=== PATIENT | female | born 1965 | race Caucasian/White ===

== ENCOUNTER 2018-05-08 20:19 | Inpatient (IN) ==
[2018-05-08] MEDS ORDERED: Sod Chloride 0.9% Inj 1,000 ML IV.SIG ONE (22:05)
--- NOTE | 2018-05-08 22:11 | ED ---
HPI General Chief complaint: Fall Stated complaint: Left Hip Pain Time Seen by Provider: 05/08/18 21:55 History of Present Illness HPI narrative: 53-year-old female presents via EMS for evaluation. The patient reports that this morning she Was walking in her home when she became lightheaded and fell to the ground, landing on her left hip. She is complaining of left hip pain which is constant, aching, aggravated by movement. She reports that she has not been able to ambulate on her left hip since the fall. She takes morphine and Percocet for chronic pain. She reports that she has had similar lightheaded episodes several times in the past and has been seen at different hospitals for evaluation of that issue and told that everything was "normal" and she believes that it is secondary to her medications. She takes aspirin, atorvastatin, morphine, Percocet, unknown blood pressure medications. She does report a generalized headache as well as her left hip pain. She denies chest pain, shortness of breath, palpitations, blurred vision, nausea, vomiting, abdominal pain, flank pain. No other complaints. Related Data Home Medications Medication Instructions Recorded Confirmed aspirin 325 mg PO DAILY 05/08/18 05/08/18 atorvastatin 80 mg PO DAILY 05/08/18 05/08/18 morphine mg PO BID 05/08/18 oxycodone-acetaminophen [Percocet] 1 tab PO Q4-6H PRN 05/08/18 05/08/18 Allergies Allergy/AdvReac Type Severity Reaction Status Date / Time No Known Allergies Allergy Unverified 05/08/18 21:41 Review of Systems ROS: all other systems reviewed are negative [facility] Medical History Medical History HTN (hypertension) (Acute) High cholesterol (Acute) Surgical History Surgical History Hx of CABG (Acute) Social History Social History Substance History: Active Abuse Second Hand Smoke Exposure: No Smoking Status: Former smoker How Often Do You Have a Drink Containing Alcohol: Never Recent Travel in [place] within the Last 8 Weeks: No Recent Out of Country Travel within the Last 8 Weeks: No Substance Abuse Detail Marijuana: Substance Use Status: Active Route Used Substance Abuse: By Mouth and Inhalation Substance Frequency: DAILY Reason for Use: Calm Down and Feels Good Immunization History Tetanus Immunization: >5 Years Hx Influenza Vaccine This Season: No Exam Narrative Exam Narrative: GENERAL: This is a well-developed well-nourished female no acute distress SKIN: Warm and dry. Surgical scars noted on the abdomen and legs. HEAD: Atraumatic. Normocephalic. EYES: Pupils equal and round. No scleral icterus. No injection or drainage. ENT: No nasal bleeding or discharge. Mucous membranes pink and moist. NECK: Trachea midline. No JVD. CARDIOVASCULAR: Regular rate and rhythm. No murmur appreciated. RESPIRATORY: No accessory muscle use. Clear to auscultation. Breath sounds equal bilaterally. GASTROINTESTINAL: Abdomen soft, non-tender, nondistended. Hepatic and splenic margins not palpable. MUSCULOSKELETAL: No obvious deformities. There is no shortening or rotation of the hips. There is pain with passive range of motion activities of the left hip as well as tenderness to palpation of the left hip. NEUROLOGICAL: Awake and alert. No obvious cranial nerve deficits. Motor grossly within normal limits. Normal speech. Course Initial Documented Vital Signs Temperature 98.4 F 05/08/18 21:42 Pulse Rate 114 H 05/08/18 21:42 Respiratory Rate 20 05/08/18 21:42 Blood Pressure 155/81 H 05/08/18 21:42 Pulse Oximetry 100 05/08/18 21:42 Last Documented Vital Signs Temperature 98.4 F 05/08/18 21:42 Pulse Rate 116 H 05/08/18 22:20 Respiratory Rate 20 05/08/18 21:49 Blood Pressure 155/81 H 05/08/18 21:42 Pulse Oximetry 100 05/08/18 21:42 Medical Decision Making [facility] Narrative Medical decision making narrative: The patient was placed on ECG monitoring pulse oximetry. 12 lead EKG ordered. Lab work, hip/pelvis x-ray, CT brain ordered. The patient will be given IV fluids. The patient's lab work and imaging studies have been reviewed. The x-ray of the hip was negative. She seems to have severe pain in her left hip and has been unable to handle it all day. Therefore CT of the left hip was obtained and it does reveal an acute nondisplaced femoral neck fracture. CT the brain reveals no acute abnormalities. The patient began acting bizarre approximately 1-2 hours after she arrived. She reports that she last took her pain medication this morning I suspect that she may be having opiate withdrawals. Morphine has been ordered. The patient will be admitted to the medicine team for orthopedic consultation. Medical Screen Exam Complete: Yes Emergency Medical Condition: Yes Differential Diagnosis Differential Diagnosis: intracranial hemorrhage, arrhythmia, electrolyte abnormality, hypoglycemia, anemia, dehydration,Medication side effect, orthostatic hypotension, vertigo, acute coronary syndrome Lab Data Result diagrams: 05/08/18 22:20 05/08/18 22:20 Lab Results 05/08/18 05/08/18 Range/Units 22:20 22:20 WBC 9.9 (4.0-11.0) th/mm3 RBC 5.01 (4.00-5.30) mil/mm3 Hgb 14.8 (11.6-15.3) gm/dL Hct 43.5 (35.0-46.0) % MCV 86.9 (80.0-100.0) fL MCH 29.6 (27.0-34.0) pg MCHC 34.1 (32.0-36.0) % RDW 13.5 (11.6-17.2) % Plt Count 214 (150-450) th/mm3 MPV 7.2 (7.0-11.0) fL Neut % (Auto) 80.5 H (16.0-70.0) % Lymph % (Auto) 13.3 (9.0-44.0) % [place] % (Auto) 5.4 (0.0-8.0) % Eos % (Auto) 0.1 (0.0-4.0) % Baso % (Auto) 0.7 (0.0-2.0) % Neut # (Auto) 8.0 H (1.8-7.7) th/mm3 Lymph # (Auto) 1.3 (1.0-4.8) th/mm3 [place] # (Auto) 0.5 (0.0-0.9) th/mm3 Eos # (Auto) 0.0 (0.0-0.4) th/mm3 Baso # (Auto) 0.1 (0.0-0.2) th/mm3 WBC Differential . Differential Comment Auto diff final Sodium 142 (136-145) meq/L Potassium 4.0 (3.5-5.1) meq/L Chloride 104 (98-107) meq/L Carbon Dioxide 29.7 (21.0-32.0) meq/L Anion Gap 8 (5-15) meq/L BUN 15 (7-18) mg/dL Creatinine 0.79 (0.50-1.00) mg/dL Estimated GFR 76 L (>89) mL/min Random Glucose 112 H (74-106) mg/dL Calcium 9.2 (8.5-10.1) mg/dL Magnesium 2.6 H (1.5-2.5) mg/dL Total Creatine Kinase 313 H (26-192) U/L CK-MB (CK-2) 2.4 (0.5-3.6) ng/mL CK-MB (CK-2) % 0.8 (0.0-4.0) % Troponin I Less than 0.02 L (0.02-0.05) ng/mL Imaging Data Radiologist's impression: Hip X-Ray 05/08/18 22:05 CONCLUSION: No fracture is definitely seen. Head CT 05/09/18 00:00 CONCLUSION: 1. Negative CT Head non contrast. . Hip CT 05/09/18 00:00 CONCLUSION: 1. Acute nondisplaced subcapital femoral neck fracture. Discharge Plan Discharge Disposition Patient Disposition: 30 Still Patient Discharge Condition Condition: Stable Discharge Details Diagnosis: Closed hip fracture, Opiate withdrawal Physicians Team ED Provider: Subhash Beasley ED Midlevel Provider: Jorge Fonseca Primary Care Provider: UNKNOWN, Rxs /Orders / Referrals /Forms Prescriptions: No Action atorvastatin 80 mg Tablet 80 mg PO DAILY RF: 0 aspirin 325 mg Tablet 325 mg PO DAILY RF: 0 oxycodone-acetaminophen [Percocet] 10-325 mg Tablet 1 tab PO Q4-6H PRN (Reason: Pain) RF: 0 morphine 15 mg Tablet PO BID RF: 0 Status ED Status: With Doctor
[2018-05-08 22:27] LABS: Baso # (Auto) 0.1 th/mm3 (0.0-0.2); Baso % (Auto) 0.7 % (0.0-2.0); Eos % (Auto) 0.1 % (0.0-4.0); Hematocrit 43.5 % (35.0-46.0); Hemoglobin 14.8 gm/dL (11.6-15.3); Lymph # (Auto) 1.3 th/mm3 (1.0-4.8); Lymph % (Auto) 13.3 % (9.0-44.0); Mean Corpuscular HGB Conc 34.1 % (32.0-36.0); Mean Corpuscular Hemoglobin 29.6 pg (27.0-34.0); Mean Corpuscular Volume 86.9 fL (80.0-100.0); Mean Platelet Volume 7.2 fL (7.0-11.0); Mono # (Auto) 0.5 th/mm3 (0.0-0.9); Mono % (Auto) 5.4 % (0.0-8.0); Neut % (Auto) 80.5 % (16.0-70.0); Platelet Count 214 th/mm3 (150-450); Red Blood Count 5.01 mil/mm3 (4.00-5.30); Red Cell Distribution Width 13.5 % (11.6-17.2); White Blood Count 9.9 th/mm3 (4.0-11.0)
[2018-05-08 22:49] LABS: Anion Gap 8 meq/L (5-15); Blood Urea Nitrogen 15 mg/dL (7-18); Calcium 9.2 mg/dL (8.5-10.1); Carbon Dioxide 29.7 meq/L (21.0-32.0); Chloride 104 meq/L (98-107); Glomerular Filtration Rate 76 mL/min (>89); Glucose,Random 112 mg/dL (74-106); Magnesium 2.6 mg/dL (1.5-2.5); Sodium 142 meq/L (136-145)
[2018-05-08 22:54] LABS: Creatine Kinase 313 U/L (26-192)
--- NOTE | 2018-05-08 22:55 | XR ---
EXAM DATE: 05/08/2018 10:45 PM EDT AGE/SEX: 53 years / Female INDICATIONS: Left hip pain, fall. CLINICAL DATA: This is the patient's initial encounter. Patient reports that signs and symptoms have been present for 1 day and indicates a pain score of 10/10. MEDICAL/SURGICAL HISTORY: None. None. COMPARISON: No prior exams available for comparison. FINDINGS: A fracture is not seen. Clips are seen at the hip regions bilaterally. There is degenerative change i n the lumbar spine. There is a vascular stent seen in the right common iliac region. CONCLUSION: No fracture is definitely seen. Electronically signed by: Humberto Colmenares MD 05/08/2018 10:54 PM EDT
[2018-05-08 23:19] LABS: CKMB Percent 0.8 % (0.0-4.0); Creatine Kinase MB 2.4 ng/mL (0.5-3.6)
--- NOTE | 2018-05-09 00:57 | CT ---
EXAM DATE: 05/09/2018 12:52 AM EDT AGE/SEX: 53 years / Female INDICATIONS: Trauma; fall. CLINICAL DATA: This is the patient's initial encounter. Patient reports that signs and symptoms have been present for 1 day and indicates a pain score of 5/10. MEDICAL/SURGICAL HISTORY: Cardiovascular disease. Hypertension. CABG. RADIATION DOSE: 52.34 CTDI (mGy) COMPARISON: No prior exams available for comparison. TECHNIQUE: Multiple contiguous axial images were acquired using a multirow detector CT scanner witho ut contrast. Multiplanar reconstruction was performed in the sagittal and coronal planes. Using aut omated exposure control and adjustment of the mA and/or kV according to patient size, radiation dose was kept as low as reasonably achievable to obtain optimal diagnostic quality images. DICOM format i mage data is available electronically for review and comparison. FINDINGS: There is an acute nondisplaced subcapital femoral neck fracture. No angulation or distraction. The fe moral head remains in contact with the acetabulum. There is a bypass graft seen involving the left hemipelvis as well as to femorofemoral bypass grafts. Urinary bladder is well distended. Degenerative changes within the lower lumbar spine. Heavily calci fied plaque involving the visualized inflow vessels. Degenerative changes involving the SI joints. CONCLUSION: 1. Acute nondisplaced subcapital femoral neck fracture. Electronically signed by: Howard Castro MD 05/09/2018 12:56 AM EDT
--- NOTE | 2018-05-09 00:58 | CT ---
EXAM DATE: 05/09/2018 12:46 AM EDT AGE/SEX: 53 years / Female INDICATIONS: Fall altered mental status. CLINICAL DATA: This is the patient's initial encounter. Patient reports that signs and symptoms have been present for 1 day and indicates a pain score of 5/10. MEDICAL/SURGICAL HISTORY: Cardiovascular disease. Hypertension. CABG. RADIATION DOSE: 56.35 CTDI (mGy) COMPARISON: No prior exams available for comparison. TECHNIQUE: CT of the head without contrast. Using automated exposure control and adjustment of the mA and/or kV according to patient size, radiation dose was kept as low as reasonably achievable to ob tain optimal diagnostic quality images. DICOM format image data is available electronically for revi ew and comparison. FINDINGS: Cerebrum: The ventricles are normal for age. No evidence of midline shift, mass lesion, hemorrhage or acute infarction. No extraaxial fluid collections are seen. Posterior Fossa: The cerebellum and brainstem are intact. The 4th ventricle is midline. The cerebe llopontine angle is unremarkable. Extracranial: The visualized portion of the orbits is intact. Skull: The calvaria is intact. No evidence of skull fracture. CONCLUSION: 1. Negative CT Head non contrast. . Electronically signed by: Howard Castro MD 05/09/2018 12:57 AM EDT
[2018-05-09] MEDS ORDERED: Morphine Sulfate Inj 8 MG/ML Vial IV.PUSH ONE (01:04)
[2018-05-09] MEDS ORDERED: Morphine Inj 4 MG/ML Vial IV.PUSH ONE (01:11)
[2018-05-09] MEDS ORDERED: Acetaminophen 325 MG Tablet PO PRN (01:17)
[2018-05-09] MEDS ORDERED: Bisacodyl 10 MG Supp RECTAL PRN (01:17)
--- NOTE | 2018-05-09 02:20 | P.HPIM ---
History of Present Illness Primary Care Physician: UNKNOWN History of Present Illness: This is a 53-year-old female with a PMH of HTN, Chronic Pain and Hyperlipidemia who was brought to the ER by EMS secondary to complaints of left hip pain. States she had sudden episode of dizziness w/ fall while at home earlier this morning, notes she's been unable to ambulate due to pain. Notes pain is constant, severe, 10/10, non-radiating. No other injuries reported. On arrival , BP 155/81, HR 114, O2 sat 100% on RA, Afebrile. CBC unremarkable. Chemistry essentially unremarkable except for GFR 76. CPK 313. Troponin negative. Hip x -ray with no fracture. CT Hip with acute nondisplaced subcapital femoral neck fracture. While in the ER, patient with episode of delirium thought to be related to opiate withdrawal as patient on Morphine and Percocet at home w/ missed doses. CT Head w/ no acute findings. - Diagnosis (1) Fall (2) Hip fracture, left (3) Delirium Inpatient Certification: I certify that the inpatient services were ordered in accordance with Medicare regulations governing the order. This includes certification that hospital inpatient services are reasonable and necessary and in the case of services not specified as inpatient-only under 42 CFR 419.22(n), that they are appropriately provided as inpatient services in accordance to with the 2-midnight benchmark under 43 CFR 412.3(e) Estimated Total Length of Stay (Days): 2 Plans for Post Hospital Care: Not yet determined Review of Systems PAST FAMILY HISTORY: Reviewed. No h/o DM or CAD All other systems reviewed negative except as stated in HPI PMFSH - History History Provided By: Patient - Medical History Medical History: Medical History (Last Updated 05/08/18 @ 21:48 by Theron Ravi) HTN (hypertension) High cholesterol - Surgical History Surgical History: Surgical History (Last Updated 05/08/18 @ 21:48 by Theron Ravi) Hx of CABG - Tobacco History Second Hand Smoke Exposure: No Tobacco Use In Past 30 Days: No Smoking Status: Former smoker - Alcohol History How Often Do You Have a Drink Containing Alcohol: Never - Substance Use History Substance History: Active Abuse - Substance Use Type Marijuana Status: Active Route Used: By Mouth, Inhalation Frequency: DAILY Reason for Use: Calm Down, Feels Good - Travel History Recent Travel in the [place] Within the Last 8 Weeks: No Recent Travel Out of the Country Within the Last 8 Weeks: No - Immunization History Tetanus Immunization: >5 Years Hx Influenza Vaccine This Season: No Medications and Allergies Active Medications: Active Medications Acetaminophen (Tylenol) 650 mg PO Q4H PRN PRN Reason: Temp > 100.4 Al Hydroxide/Mg Hydroxide (Milk Of Magnesia Liq) 30 ml PO Q12H PRN PRN Reason: Mild Constipation Bisacodyl (Dulcolax Supp) 10 mg RECTAL DAILY PRN PRN Reason: SEVERE CONSITIPATION Sodium Chloride (Ns Inj) 1,000 mls @ 100 mls/hr IV.CONT .Q10H REI Lactulose (Lactulose Liq) 30 ml PO DAILY PRN PRN Reason: SEVERE CONSITIPATION Morphine Sulfate (Morphine Inj) 2 mg IV.PUSH Q4H PRN PRN Reason: PAIN 6-10 Morphine Sulfate (Msir) 15 mg PO BID REI Ondansetron HCl (Zofran Inj) 4 mg IV.PUSH Q6H PRN PRN Reason: NAUSEA OR VOMITING Oxycodone/Acetaminophen (Percocet 10/325 Mg) 1 tab PO Q4H PRN PRN Reason: PAIN 3-5 Senna/Docusate Sodium (Stephanie-Colace) 1 tab PO BID REI Sennosides (Senokot) 17.2 mg PO Q12H PRN PRN Reason: Moderate Constipation Sodium Chloride (Ns Flush) 2 ml IV.FLUSH PRN PRN PRN Reason: FLUSH AFTER USING IV ACCESS Allergies Allergy/AdvReac Type Severity Reaction Status Date / Time No Known Allergies Allergy Unverified 05/08/18 21:41 Home Medications Medication Instructions Recorded Confirmed Type aspirin 325 mg PO DAILY 05/08/18 05/08/18 History atorvastatin 80 mg PO DAILY 05/08/18 05/08/18 History morphine mg PO BID 05/08/18 History oxycodone-acetaminophen [Percocet] 1 tab PO Q4-6H PRN 05/08/18 05/08/18 History Exam Vital signs: Vital Signs 05/08/18 21:42 05/08/18 21:49 05/08/18 22:20 Temperature 98.4 F Pulse Rate 114 H 116 H Respiratory Rate 20 20 Blood Pressure 155/81 H Pulse Oximetry 100 05/09/18 01:49 Temperature 99.3 F Pulse Rate 116 H Respiratory Rate 20 Blood Pressure 136/84 Pulse Oximetry 98 Intake & Output 05/08/18 05/08/18 05/09/18 06:59 18:59 06:59 Weight 86.183 kg Narrative: PE: GENERAL: Middle-aged white female in no acute distress, tearful, pressured speech. SKIN: Focused skin assessment warm and dry. HEENT: PERRLA, EOMI. No scleral icterus or conjunctival pallor. No lid lag or facial droop. CARDIOVASCULAR: Regular rate and rhythm. No obvious murmurs to auscultation. No chest tenderness to palpation. RESPIRATORY: No obvious rhonchi or wheezing. Clear to auscultation. Breath sounds equal bilaterally. GASTROINTESTINAL: Abdomen soft, non-tender, nondistended. BS normal. MUSCULOSKELETAL: Extremities without clubbing, cyanosis, or edema. No obvious deformities. Decreased ROM of LLE due to injury. NEUROLOGICAL: Awake, alert and oriented x4. No focal neurologic deficits. Moving both upper and lower extremities spontaneously. PSYCHIATRIC: Appropriate mood and affect. Insight and judgment normal. Results - Labs CBC & Chem 7: 05/08/18 22:20 05/08/18 22:20 Labs: Short CBC 05/08/18 Range/Units 22:20 WBC 9.9 (4.0-11.0) th/mm3 Hgb 14.8 (11.6-15.3) gm/dL Hct 43.5 (35.0-46.0) % Plt Count 214 (150-450) th/mm3 BMP 05/08/18 22:20 Sodium 142 Potassium 4.0 Chloride 104 Carbon Dioxide 29.7 BUN 15 Creatinine 0.79 Calcium 9.2 Cardiac Enzymes 05/08/18 Range/Units 22:20 Total Creatine Kinase 313 H (26-192) U/L CK-MB (CK-2) 2.4 (0.5-3.6) ng/mL Troponin I Less than 0.02 L (0.02-0.05) ng/mL - Imaging Impressions Hip X-Ray 05/08/18 22:05 CONCLUSION: No fracture is definitely seen. Head CT 05/09/18 00:00 CONCLUSION: 1. Negative CT Head non contrast. . Hip CT 05/09/18 00:00 CONCLUSION: 1. Acute nondisplaced subcapital femoral neck fracture. Caprini VTE Risk Assessment Caprini VTE Risk Assessment: No/Low Risk (score <= 1) Caprini Risk Assessment Model: Point Value = 1 Point Value = 2 Point Value = 3 Point Value = 5 Age 41-60 Minor surgery BMI > 25 kg/m2 Swollen legs Varicose veins or History of unexplained or recurrent spontaneous Oral contraceptives or hormone replacement Sepsis (< 1 month) Serious lung disease, including pneumonia (< 1 month) Abnormal pulmonary function Acute myocardial infarction Congestive heart failure (< 1 month) History of inflammatory bowel disease Medical patient at bed rest Age 61-74 Arthroscopic surgery Major open surgery (> 45 min) Laparoscopic surgery (> 45 min) Malignancy Confined to bed (> 72 hours) Immobilizing plaster cast Central venous access Age >= 75 History of VTE Family history of VTE Factor V Leiden Prothrombin [id number] Lupus anticoagulant Anticardiolipin antibodies Elevated serum homocysteine Heparin-induced thrombocytopenia Other congenital or acquired thrombophilia Stroke (< 1 month) Elective arthroplasty Hip, pelvis, or leg fracture Acute spinal cord injury (< 1 month) Prophylaxis Regimen: Total Risk Factor Score Risk Level Prophylaxis Regimen 0-1 Low Early ambulation 2 Moderate Order ONE of the following: *Sequential Compression Device (SCD) *Heparin 5000 units SQ BID 3-4 Higher Order ONE of the following medications: *Heparin 5000 units SQ TID *Enoxaparin/Lovenox 40 mg SQ daily (WT < 150 kg, CrCl > 30 mL/min) *Enoxaparin/Lovenox 30 mg SQ daily (WT < 150 kg, CrCl > 10-29 mL/min) *Enoxaparin/Lovenox 30 mg SQ BID (WT < 150 kg, CrCl > 30 mL/min) AND/OR *Sequential Compression Device (SCD) 5 or more Highest Order ONE of the following medications: *Heparin 5000 units SQ TID (Preferred with Epidurals) *Enoxaparin/Lovenox 40 mg SQ daily (WT < 150 kg, CrCl > 30 mL/min) *Enoxaparin/Lovenox 30 mg SQ daily (WT < 150 kg, CrCl > 10-29 mL/min) *Enoxaparin/Lovenox 30 mg SQ BID (WT < 150 kg, CrCl > 30 mL/min) AND *Sequential Compression Device (SCD) Assessment and Plan - Assessment (1) Fall Code(s): W19.XXXA - Unspecified fall, initial encounter Status: Acute (2) Hip fracture, left Code(s): S72.002A - Fracture of unspecified part of neck of left femur, initial encounter for closed fracture Status: Acute (3) Delirium Code(s): R41.0 - Disorientation, unspecified Status: Acute - Plan A/P: 1. Fall: s/p mechanical fall after episode of dizziness, no LOC or head trauma noted. 2. Left Hip Fx: X-ray negative, however pt w/ persistent pain complaints, CT Hip w/ nondisplaced acute subcapital femoral neck fracture, images reviewed. Ortho Consult for further eval/intervention. NPO, IVF, analgesics/antiemetics as needed. 3. Delirium: episode of delirium in ER, thought to be related to chronic opioid dependence and acute withdrawal, mental status now improved. CT Head w/ no acute findings, Pscyh eval if needed. 4. DVT Prophylaxis: Anticoagulation post op 5. Social work for d/c planning as needed 6. Case discussed w/ ER physician at length, labs/records/imaging reviewed by me.
[2018-05-09] MEDS: oxyCODONE/Acetaminophen 10/325 Tablet PO PRN ×3 (04:19→19:28)
[2018-05-09] MEDS ORDERED: Chlorhexidine Gluconate 2% 1 Pack (2 Cloths) TOPICAL ONE (04:29)
[2018-05-09] MEDS ORDERED: Metoprolol Tartrate 25 MG Tablet PO ONE (04:29)
[2018-05-09] MEDS ORDERED: Sodium Chlor 0.9% Inj 500 ML IV.SIG SCH (05:00)
[2018-05-09] MEDS: Sod Chloride 0.9% Inj 1,000 ML IV.CONT SCH ×3 (07:21→22:00)
--- NOTE | 2018-05-09 07:57 | P.CONOP ---
[facility] Orthopedics Consult Note - [facility] Consult date: 05/09/18 Requesting physician: Jorge Fonseca (ER staff) Consult reason: fracture Chief complaint: Left hip fracture, opiate withdrawal Narrative: 53-year-old female with a past medical history of HTN, Chronic Pain, PVD, Peripheral neuropathy and Hyperlipidemia presented to [place] emergency department late last evening after a fall incident at her house. Patient had immediate left hip pain and was unable to ambulate. Patient admits that she was "on morphine". Patient is a chronic pain patient due to several "vascular problems". Patient states she did not trip over anything and that she just "fell". Orthopedic consultation was requested after x-ray and CT scan of the hip confirmed a left femoral neck fracture. Patient is not anticoagulated and has been n.p.o. Patient lives at home with her . She has no history of any orthopedic injuries and her surgeries. Patient previously ambulated unassisted. It is noted patient appears to have previous distal digit amputations on the right lower extremity. <Eleanor Madden" - Last Filed: 05/09/18 07:45> Review of Systems Well outlined in medical record <Eleanor Madden" - Last Filed: 05/09/18 07:45> PMFSH - History History Provided By: Patient - Medical History Medical History: Medical History (Last Reviewed 05/09/18 @ 07:19 by Isreal Hooks) HTN (hypertension) High cholesterol - Surgical History Surgical History: Surgical History (Last Reviewed 05/09/18 @ 07:19 by Isreal Hooks) Hx of CABG - Tobacco History Second Hand Smoke Exposure: No Tobacco Use In Past 30 Days: Yes Smoking Status: Former smoker Tobacco Type: Cigarettes - Alcohol History How Often Do You Have a Drink Containing Alcohol: Monthly or less - Substance Use History Substance History: Active Abuse - Substance Use Type Marijuana Status: Active Route Used: By Mouth Frequency: DAILY Reason for Use: Calm Down - Travel History Recent Travel in the [place] Within the Last 8 Weeks: No Recent Travel Out of the Country Within the Last 8 Weeks: No - Immunization History Tetanus Immunization: Unsure Hx Influenza Vaccine This Season: No <Eleanor Madden" - Last Filed: 05/09/18 07:45> - Medical History Medical History: Medical History (Last Reviewed 05/09/18 @ 07:19 by Isreal Hooks) HTN (hypertension) High cholesterol - Surgical History Surgical History: Surgical History (Last Reviewed 05/09/18 @ 07:19 by Isreal Hooks) Hx of CABG <Dwight Santillan - Last Filed: 05/09/18 10:05> Medications and Allergies Active Medications: Active Medications Acetaminophen (Tylenol) 650 mg PO Q4H PRN PRN Reason: fever or headache Al Hydroxide/Mg Hydroxide (Milk Of Magnesia Liq) 30 ml PO Q12H PRN PRN Reason: Mild Constipation Bisacodyl (Dulcolax Supp) 10 mg RECTAL DAILY PRN PRN Reason: SEVERE CONSITIPATION Sodium Chloride (Ns Inj) 1,000 mls @ 100 mls/hr IV.CONT .Q10H REI Last Admin: 05/09/18 07:21 Dose: Not Given Lactated Ringer's (Lr 1000 Ml Inj) 1,000 mls @ 30 mls/hr IV.SIG .Q24H REI Stop: 05/10/18 04:29 Sodium Chloride (Ns Inj) 500 mls @ 30 mls/hr IV.SIG .Q10H REI Lactulose (Lactulose Liq) 30 ml PO DAILY PRN PRN Reason: SEVERE CONSITIPATION Morphine Sulfate (Morphine Inj) 2 mg IV.PUSH Q4H PRN PRN Reason: PAIN 6-10 Morphine Sulfate (Msir) 15 mg PO BID REI Ondansetron HCl (Zofran Inj) 4 mg IV.PUSH Q6H PRN PRN Reason: NAUSEA OR VOMITING Oxycodone/Acetaminophen (Percocet 10/325 Mg) 1 tab PO Q4H PRN PRN Reason: PAIN 3-5 Last Admin: 05/09/18 04:19 Dose: 1 tab Senna/Docusate Sodium (Stephanie-Colace) 1 tab PO BID REI Sennosides (Senokot) 17.2 mg PO Q12H PRN PRN Reason: Moderate Constipation Sodium Chloride (Ns Flush) 2 ml IV.FLUSH PRN PRN PRN Reason: FLUSH AFTER USING IV ACCESS <Eleanor Madden "Ev" - Last Filed: 05/09/18 07:45> Active Medications: Active Medications Acetaminophen (Tylenol) 650 mg PO Q4H PRN PRN Reason: fever or headache Al Hydroxide/Mg Hydroxide (Milk Of Magnesia Liq) 30 ml PO Q12H PRN PRN Reason: Mild Constipation Bisacodyl (Dulcolax Supp) 10 mg RECTAL DAILY PRN PRN Reason: SEVERE CONSITIPATION Sodium Chloride (Ns Inj) 1,000 mls @ 100 mls/hr IV.CONT .Q10H [facility] Last Admin: 05/09/18 07:21 Dose: Not Given Lactated Ringer's (Lr 1000 Ml Inj) 1,000 mls @ 30 mls/hr IV.SIG .Q24H REI Stop: 05/10/18 04:29 Sodium Chloride (Ns Inj) 500 mls @ 30 mls/hr IV.SIG .Q10H [facility] Lactulose (Lactulose Liq) 30 ml PO DAILY PRN PRN Reason: SEVERE CONSITIPATION Morphine Sulfate (Morphine Inj) 2 mg IV.PUSH Q4H PRN PRN Reason: PAIN 6-10 Morphine Sulfate (Msir) 15 mg PO BID [facility] Ondansetron HCl (Zofran Inj) 4 mg IV.PUSH Q6H PRN PRN Reason: NAUSEA OR VOMITING Oxycodone/Acetaminophen (Percocet 10/325 Mg) 1 tab PO Q4H PRN PRN Reason: PAIN 3-5 Last Admin: 05/09/18 04:19 Dose: 1 tab Senna/Docusate Sodium (Stephanie-Colace) 1 tab PO BID [facility] Sennosides (Senokot) 17.2 mg PO Q12H PRN PRN Reason: Moderate Constipation Sodium Chloride (Ns Flush) 2 ml IV.FLUSH PRN PRN PRN Reason: FLUSH AFTER USING IV ACCESS <Dwight Santillan - Last Filed: 05/09/18 10:05> Allergies Allergy/AdvReac Type Severity Reaction Status Date / Time No Known Allergies Allergy Unverified 05/08/18 21:41 Home Medications Medication Instructions Recorded Confirmed Type aspirin 325 mg PO DAILY 05/08/18 05/08/18 History atorvastatin 80 mg PO DAILY 05/08/18 05/08/18 History morphine mg PO BID 05/08/18 History oxycodone-acetaminophen [Percocet] 1 tab PO Q4-6H PRN 05/08/18 05/08/18 History Exam Vital signs: Vital Signs 05/08/18 21:42 05/08/18 21:49 05/08/18 22:20 Temperature 98.4 F Pulse Rate 114 H 116 H Respiratory Rate 20 20 Blood Pressure 155/81 H Pulse Oximetry 100 05/09/18 01:49 05/09/18 04:00 Temperature 99.3 F 99.4 F Pulse Rate 116 H 115 H Respiratory Rate 20 17 Blood Pressure 136/84 168/86 H Pulse Oximetry 98 97 Intake & Output 05/08/18 05/09/18 05/09/18 18:59 06:59 18:59 Weight 86.1 kg Other: # Voids 0 Narrative: LLE: Any attempts at range of motion of the left lower extremity elicits pain, leg is in normal alignment, distal digits and plantar aspect of foot are slightly erythematous due to vascular problems, no calf pain, good cap refill, neuro exam unreliable due to neuropathy <Eleanor Madden "Ev" - Last Filed: 05/09/18 07:45> Vital signs: Vital Signs 05/08/18 21:42 05/08/18 21:49 05/08/18 22:20 Temperature 98.4 F Pulse Rate 114 H 116 H Respiratory Rate 20 20 Blood Pressure 155/81 H Pulse Oximetry 100 05/09/18 01:49 05/09/18 04:00 05/09/18 08:00 Temperature 99.3 F 99.4 F 97.7 F Pulse Rate 116 H 115 H 107 H Respiratory Rate 20 17 20 Blood Pressure 136/84 168/86 H 125/91 H Pulse Oximetry 98 97 98 Intake & Output 05/08/18 05/09/18 05/09/18 18:59 06:59 18:59 Weight 86.1 kg Other: # Voids 0 <Dwight Santillan - Last Filed: 05/09/18 10:05> Results - Labs Result Diagrams: 05/08/18 22:20 05/08/18 22:20 Labs: Laboratory Results - last 24 hr 05/08/18 05/08/18 22:20 22:20 WBC 9.9 RBC 5.01 Hgb 14.8 Hct 43.5 MCV 86.9 MCH 29.6 MCHC 34.1 RDW 13.5 Plt Count 214 MPV 7.2 Neut % (Auto) 80.5 H Lymph % (Auto) 13.3 Alfalfa % (Auto) 5.4 Eos % (Auto) 0.1 Baso % (Auto) 0.7 Neut # (Auto) 8.0 H Lymph # (Auto) 1.3 Alfalfa # (Auto) 0.5 Eos # (Auto) 0.0 Baso # (Auto) 0.1 WBC Differential . Differential Comment Auto diff final Sodium 142 Potassium 4.0 Chloride 104 Carbon Dioxide 29.7 Anion Gap 8 BUN 15 Creatinine 0.79 Estimated GFR 76 L Random Glucose 112 H Calcium 9.2 Magnesium 2.6 H Total Creatine Kinase 313 H CK-MB (CK-2) 2.4 CK-MB (CK-2) % 0.8 Troponin I Less than 0.02 L - Diagnostic results Imaging: Impressions Hip X-Ray 05/08/18 22:05 CONCLUSION: No fracture is definitely seen. Head CT 05/09/18 00:00 CONCLUSION: 1. Negative CT Head non contrast. . Hip CT 05/09/18 00:00 CONCLUSION: 1. Acute nondisplaced subcapital femoral neck fracture. <Eleanor Madden "Ev" - Last Filed: 05/09/18 07:45> - Labs Result Diagrams: 05/08/18 22:20 05/08/18 22:20 Labs: Laboratory Results - last 24 hr 05/08/18 05/08/18 05/09/18 22:20 22:20 08:20 WBC 9.9 RBC 5.01 Hgb 14.8 Hct 43.5 MCV 86.9 MCH 29.6 MCHC 34.1 RDW 13.5 Plt Count 214 MPV 7.2 Neut % (Auto) 80.5 H Lymph % (Auto) 13.3 Alfalfa % (Auto) 5.4 Eos % (Auto) 0.1 Baso % (Auto) 0.7 Neut # (Auto) 8.0 H Lymph # (Auto) 1.3 Alfalfa # (Auto) 0.5 Eos # (Auto) 0.0 Baso # (Auto) 0.1 WBC Differential . Differential Comment Auto diff final PT INR APTT Sodium 142 Potassium 4.0 Chloride 104 Carbon Dioxide 29.7 Anion Gap 8 BUN 15 Creatinine 0.79 Estimated GFR 76 L Random Glucose 112 H Calcium 9.2 Magnesium 2.6 H Total Creatine Kinase 313 H CK-MB (CK-2) 2.4 CK-MB (CK-2) % 0.8 Troponin I Less than 0.02 L Blood Type A Positive Blood Type Recheck Required Antibody Screen Negative 05/09/18 05/09/18 08:20 08:20 WBC RBC Hgb Hct MCV MCH MCHC RDW Plt Count MPV Neut % (Auto) Lymph % (Auto) Alfalfa % (Auto) Eos % (Auto) Baso % (Auto) Neut # (Auto) Lymph # (Auto) Alfalfa # (Auto) Eos # (Auto) Baso # (Auto) WBC Differential Differential Comment PT 10.7 INR 1.1 APTT 26.3 Sodium Potassium Chloride Carbon Dioxide Anion Gap BUN Creatinine Estimated GFR Random Glucose Calcium Magnesium Total Creatine Kinase CK-MB (CK-2) CK-MB (CK-2) % Troponin I Blood Type Blood Type Recheck Antibody Screen - Diagnostic results Imaging: Impressions Hip X-Ray 05/08/18 22:05 CONCLUSION: No fracture is definitely seen. Head CT 05/09/18 00:00 CONCLUSION: 1. Negative CT Head non contrast. . Hip CT 05/09/18 00:00 CONCLUSION: 1. Acute nondisplaced subcapital femoral neck fracture. <Dwight Santillan - Last Filed: 05/09/18 10:05> Assessment and Plan - Assessment and Plan The findings were discussed with the patient. Recommendations are given for surgical management, to allow for mobilization and pain control: open reduction internal fixation of left femoral neck fracture. The plan is to proceed forward with cannulated screw fixation, patient understands the risk of possible avascular necrosis in which would lead to a possible total hip arthroplasty in the future. Patient understands she has a moderate risk of this is due to vascular disease. Patient is willing to proceed forward with conservative surgical option as she is fairly young. Orthopedics agrees this is that this is the best course of action for her. The nature of the planned surgical procedure, the risks, the benefits as well as postoperative expectations have been discussed with the patient in detail. In addition, alternatives of the treatment and risks were discussed. The patient acknowledges full understanding and consents to it. Written by Eleanor Madden (Ashley), acting as scribe for Dr. Dwight Santillan on May 09, 2018 at 0753. <Eleanor Madden" - Last Filed: 05/09/18 07:45> - Attending Attestation Attending Attestation: The exam, history, and the medical decision-making described in the above note were completed with the assistance of the mid-level provider. I reviewed and agree with the findings presented. I attest that I had a [id number] encounter with the patient on the same day, and personally performed and documented my assessment and findings in the medical record. The surgical options as well as the risks and benefits of same were discussed. The nature of the procedure and postoperative expectations were discussed. The patient acknowledges full understanding and consents to it. <Dwight Santillan - Last Filed: 05/09/18 10:05>
[2018-05-09 08:48] LABS: INR 1.1 Ratio; Prothrombin Time 10.7 sec (9.8-11.6)
[2018-05-09] MEDS ORDERED: fentaNYL Citrate Inj 100 MCG/2 ML Ampul ONE (11:31)
[2018-05-09] MEDS ORDERED: Ketamine Inj 50 MG/5 ML Syringe IV.PUSH ONE (11:32)
[2018-05-09] MEDS: Senna/Docusate Sodium 8.6/50 MG Tablet PO SCH ×2 (11:47→20:15)
[2018-05-09] MEDS: Morphine Sulfate 15 MG IR Tablet PO SCH ×2 (11:47→20:15)
[2018-05-09] MEDS ORDERED: ceFAZolin 2 GM Premix Inj 2 GM/50 ML PIGGYBACK IV.SIG ONE (11:48)
[2018-05-09] MEDS ORDERED: Lidocaine PF 1% Inj 5 ML Syringe INFILTRATN ONE (12:20)
[2018-05-09] MEDS ORDERED: Metoprolol Inj 5 MG/5 ML Vial IV.PUSH ONE (12:20)
[2018-05-09] MEDS ORDERED: Glycopyrrolate Inj 1 MG/5 ML Syringe IV.PUSH ONE (12:20)
[2018-05-09] MEDS ORDERED: Phenylephrine/NS 1000 MCG/10ML Syringe IV.PUSH ONE (12:20)
[2018-05-09] MEDS ORDERED: Neostigmine Inj 5 MG/5 ML Syringe IV.PUSH ONE (12:20)
--- NOTE | 2018-05-09 13:02 | XR ---
EXAM DATE: 05/09/2018 12:55 PM EDT AGE/SEX: 53 years / Female INDICATIONS: Open reduction internal fixation of the left hip. CLINICAL DATA: This is the patient's subsequent encounter. Patient reports that signs and symptoms h ave been present for 2 days and indicates a pain score of Nonresponsive. MEDICAL/SURGICAL HISTORY: . Cardiovascular disease. Hypertension. . CABG. COMPARISON: No prior exams available for comparison. FINDINGS: 2 spot intraoperative fluoroscopic views of the left hip demonstrates 3 fixation screws traversing th e left femoral neck. CONCLUSION: Postoperative changes. Electronically signed by: Matheus Paniagua MD 05/09/2018 1:00 PM EDT
[2018-05-09] MEDS ORDERED: Post-op Orders (for Pharmacy) OTHER STA (13:06)
--- NOTE | 2018-05-09 13:06 | P.OP ---
- Preoperative Diagnosis (1) Fracture of femoral neck, left - Postoperative Diagnosis (1) Fracture of femoral neck, left Date of procedure: 05/09/18 Procedure: Percutaneous pinning left femoral neck fracture Implants: Synthes 7.3 cannulated screws 3 Anesthesia: GETA Surgeon: Dwight Santillan MD Archivist Economic History: Eleanor Madden PA-C (Ashley) The surgical procedure was assisted by my physician's data assistant. Her presence was necessary throughout the case for manipulation and positioning of the surgical extremity. My PA was assisting me throughout the duration of this procedure. The skill set of the physician data assistant was medically necessary to complete this procedure. During the surgical case the electronic bench technician was working at the back table and the physician data assistant was directly assisting me. Estimated blood loss (mL): 50 Pathology: none sent Operation and Findings: Indications: This 53-year-old female fell injuring her left hip. She had pain and difficulty ambulating. X-rays in the emergency department revealed a nondisplaced minimally impacted fracture of the left femoral neck. Recommendations are for stabilization. Procedure and findings: The patient was taken to the operative suite and after undergoing an adequate level of general anesthesia was placed supine on the fracture table. Preoperative antibiotics consisted of Ancef 2 g IV. The left lower extremity was placed in skin traction and preoperative reduction was checked in both the AP and lateral planes with the C arm. The hip area was then prepped and draped in usual sterile fashion with alcohol and ChloraPrep. An approximate 3 cm longitudinal incision was made just distal to the greater trochanter presents carried out through skin subcutaneous tissue with a knife. Hemostasis was obtained electrocautery. The iliotibial band was identified and split longitudinally. An entry point was selected over the lateral cortex of the proximal femur and a threaded guidepin advanced to the lateral cortex into the femoral neck and seated in the subchondral bone of the femoral head. The position was checked in both the AP and lateral planes of the C arm. 2 additional pins were placed in a parallel fashion. Measurements were made in the appropriate length 7.3 cannulated screws seated. The position of the fracture reduction and placement of the internal fixation were checked both the AP and lateral planes. Wound was thoroughly irrigated. It was closed in layers utilizing #1 Vicryl suture on the iliotibial band, 0 Vicryl suture in the deep tissue, 2-0 Vicryl suture and subtenons tissue and aga on the skin. Sterile dressings were applied, the patient was awakened, transferred to the hospital bed and taken to the recovery room in stable condition.
[2018-05-09] MEDS ORDERED: KCL 20 mEq/D5W/NaCl 0.45% Inj 1,000 ML ONE (13:20)
[2018-05-09] MEDS: KCL 20 mEq/D5W/NaCl 0.45% Inj 1,000 ML IV.CONT SCH ×2 (13:33→22:37)
--- NOTE | 2018-05-09 15:30 | ECG ---
Date Performed: 05/09/2018 Time Performed: 05:32:14 PTAGE: 53 years EKG: Sinus tachycardia. Normal ECG except for rate Since PREVIOUS TRACING , no significant change noted PREVIOUS TRACIN05/08/2018 22.23.31 DOCTOR: Dwight العراقي Interpretating Date/Time 05/09/2018 15:29:21
--- NOTE | 2018-05-09 15:30 | ECG ---
Date Performed: 05/08/2018 Time Performed: 22:23:31 PTAGE: 53 years EKG: SINUS TACHYCARDIA ABNORMAL RHYTHM ECG NO PREVIOUS TRACING DOCTOR: Dwight العراقي Interpretating Date/Time 05/09/2018 15:28:38
[2018-05-09] MEDS: Morphine Inj 4 MG/ML Vial IV.PUSH PRN ×2 (17:17→22:30)
[2018-05-09] MEDS: ceFAZolin Inj 2,000 MG in Sodium Chlor 0.9% Inj 80 ML IV.SIG SCH (19:29)
[2018-05-09 20:49] LABS: Bilirubin,Urine Negative (Negative); Clarity,Urine Hazy (Clear); Color,Urine Yellow (Yellw/Straw); Glucose,Urine (UA) Negative (Negative); Leukocyte Esterase,Urine Moderate (Negative); Mucus,Urine Few /lpf (Occasional); Nitrite,Urine Negative (Negative); Specific Gravity,Urine 1.014 (1.002-1.035); Squamous Epithelial Cell,Urine 1 /hpf (0-5)
[2018-05-10] MEDS: oxyCODONE/Acetaminophen 10/325 Tablet PO PRN ×2 (01:33→08:17)
[2018-05-10] MEDS: ceFAZolin Inj 2,000 MG in Sodium Chlor 0.9% Inj 80 ML IV.SIG SCH ×2 (04:08→11:49)
[2018-05-10] MEDS: Morphine Inj 4 MG/ML Vial IV.PUSH PRN (04:49)
--- NOTE | 2018-05-10 06:57 | P.PNOP ---
Subjective Interval history: POD #1 percutaneous pinning left femoral neck fracture Patient is awake and alert. RN accompanied me for examination. Patient states that her pain is well controlled. Patient states that she will "not get out of bed with anyone but the therapist". Patient was reassured she is safe to transfer with nurses into chair but patient declined. No other complaints Physical Exam Vital signs: Vital Signs 05/09/18 08:00 05/09/18 13:03 05/09/18 13:15 Temperature 97.7 F 98.5 F Pulse Rate 107 H 104 H 105 H Respiratory Rate 20 20 22 Blood Pressure 125/91 H 140/67 155/82 H Pulse Oximetry 98 100 100 05/09/18 13:30 05/09/18 13:40 05/09/18 13:45 Temperature 98.6 F Pulse Rate 107 H 105 H Respiratory Rate 20 19 Blood Pressure 156/81 H 146/84 H Pulse Oximetry 95 99 96 05/09/18 16:00 05/09/18 16:33 05/09/18 20:00 Temperature 99 F 98.4 F Pulse Rate 101 H 99 H 113 H Respiratory Rate 20 18 Blood Pressure 165/86 H 133/88 168/94 H Pulse Oximetry 93 L 94 L 05/09/18 20:01 05/10/18 00:00 05/10/18 00:06 Temperature 98.3 F Pulse Rate 111 H 105 H 109 H Respiratory Rate 18 Blood Pressure 171/96 H Pulse Oximetry 94 L 05/10/18 04:00 Temperature 98.5 F Pulse Rate 112 H Respiratory Rate 18 Blood Pressure 167/85 H Pulse Oximetry 96 Intake & Output 05/09/18 05/09/18 05/10/18 06:59 18:59 06:59 Intake Total 600 / 600 500 / 500 Output Total 700 / 700 2600 / 2600 Balance -100 / -100 -2100 / -2100 Weight 86.1 kg 86.1 kg Intake: IV 200 / 200 D5W/1/2NS + KCL 20 mEq Inj 1, 0 / 0 000 ML @ 100 mls/hr IV.CONT . Q10H REI Rx#:[id number] Ancef Inj 2,000 MG In NS Inj 80 200 / 200 ML @ 200 mls/hr IV.SIG Q8H REI Rx#:[id number] Oral 300 / 300 Anesthesia Amount 600 / 600 Output: Urine 2600 / 2600 Estimated Blood Loss 50 / 50 Urine Amount (Catheter) 650 / 650 Indwelling Urethral Catheter 650 / 650 Other: # Voids 0 Date of Last Bowel Movement 05/08/18 05/07/18 Narrative: Dressing dry and intact. Tender to palpation with mild swelling around incision site. Appropriate range of motion expected post operatively. Freely able to move distal digits. No calf pain. Negative Lonny's sign. Good cap refill. 2+ pedal pulses. Neurovascular intact. - Urinary Catheter Management Indwelling Urethral Catheter Cath placed during this visit: yes Reason for continuing: Other continuation reason Insertion date: 05/09/18 Insertion time: 08:05 Results - Labs CBC & Chem 7: 05/08/18 22:20 05/08/18 22:20 Laboratory Results - last 24 hr 05/09/18 05/09/18 05/09/18 08:20 08:20 08:20 PT 10.7 INR 1.1 APTT 26.3 Urine Color Urine Clarity Urine pH Ur Specific [place] Urine Protein Urine Glucose (UA) Urine Ketones Urine Occult Blood Urine Nitrate Urine Bilirubin Urine Urobilinogen Ur Leukocyte Esterase Urine RBC Urine WBC Ur Squamous Epith Cells Urine Mucus Micro UA Comment Ur Microscopic Review Urine Culture Comments Blood Type A Positive Blood Type Recheck Required Antibody Screen Negative 05/09/18 19:45 PT INR APTT Urine Color Yellow Urine Clarity Hazy H Urine pH 6.0 Ur Specific [place] 1.014 Urine Protein Negative Urine Glucose (UA) Negative Urine Ketones Negative Urine Occult Blood Moderate H Urine Nitrate Negative Urine Bilirubin Negative Urine Urobilinogen 2.0 H Ur Leukocyte Esterase Moderate H Urine RBC 4 H Urine WBC 17 H Ur Squamous Epith Cells 1 Urine Mucus Few H Micro UA Comment Cath-culture ind Ur Microscopic Review Not Reportable Urine Culture Comments Cath-cult indicated Blood Type Blood Type Recheck Antibody Screen - Imaging Impressions Hip X-Ray 05/09/18 00:00 CONCLUSION: Postoperative changes. - Procedures 05/09/18 percutaneous pinning left femoral neck fracture Assessment and Plan - Ortho Post Op Day # 1 - Assessment and Plan POD #1 Percutaneous pinning left femoral neck fracture Ortho status stable Progress rehab, toe-touch weightbearing left lower extremity Aspirin for DVT prophylaxis No change dressing Case management to arrange rehab versus home health care Discharge planning
[2018-05-10] MEDS: Sod Chloride 0.9% Inj 1,000 ML IV.CONT SCH (08:12)
[2018-05-10] MEDS: Morphine Sulfate 15 MG IR Tablet PO SCH ×2 (08:16→21:19)
[2018-05-10] MEDS: Senna/Docusate Sodium 8.6/50 MG Tablet PO SCH ×2 (08:17→21:19)
[2018-05-10] MEDS: KCL 20 mEq/D5W/NaCl 0.45% Inj 1,000 ML IV.CONT SCH (08:17)
[2018-05-10 10:35] LABS: Baso % (Auto) 0.5 % (0.0-2.0); Eos % (Auto) 0.3 % (0.0-4.0); Hematocrit 42.6 % (35.0-46.0); Hemoglobin 14.4 gm/dL (11.6-15.3); Lymph # (Auto) 1.4 th/mm3 (1.0-4.8); Mean Corpuscular HGB Conc 33.7 % (32.0-36.0); Mean Corpuscular Hemoglobin 29.9 pg (27.0-34.0); Mean Corpuscular Volume 88.7 fL (80.0-100.0); Mean Platelet Volume 7.5 fL (7.0-11.0); Mono # (Auto) 0.5 th/mm3 (0.0-0.9); Mono % (Auto) 6.5 % (0.0-8.0); Neut # (Auto) 6.2 th/mm3 (1.8-7.7); Neut % (Auto) 75.7 % (16.0-70.0); Platelet Count 168 th/mm3 (150-450); White Blood Count 8.2 th/mm3 (4.0-11.0)
[2018-05-10 11:00] LABS: Alanine Aminotransferase 23 U/L (10-53); Albumin 3.4 g/dL (3.4-5.0); Anion Gap 10 meq/L (5-15); Aspartate Aminotransferase 13 U/L (15-37); Blood Urea Nitrogen 10 mg/dL (7-18); Calcium 8.4 mg/dL (8.5-10.1); Carbon Dioxide 25.7 meq/L (21.0-32.0); Chloride 105 meq/L (98-107); Glomerular Filtration Rate 87 mL/min (>89); Glucose,Random 103 mg/dL (74-106); Potassium 3.9 meq/L (3.5-5.1)
[2018-05-10 11:02] LABS: Alkaline Phosphatase 63 U/L (45-117); Total Protein 7.9 g/dL (6.4-8.2)
[2018-05-10 11:09] LABS: Sodium 141 meq/L (136-145)
--- NOTE | 2018-05-10 13:12 | P.CONPSY ---
Provisional Diagnosis Admission Date: May 09, 2018 01:17 [place] I.: Delirium, marijuana abuse History of Present Illness Service: Psychiatry Consult date: 05/10/18 Requesting Physician: Bri Gerber Reason for Consult: Assessment Primary Care Provider: UNKNOWN History of Present Illness: Patient is a 53-year-old white female recently moved here from [facility]. Somewhat home sustained fracture of her hip has been repaired yesterday. Staff noted some paranoid type behaviors with this lady vague delusional statements. Patient seen in her room with nurse abner present throughout session patient overall fairly well oriented for the situation she knows she is in the hospital was unable to identify [place] she thought she was in [place], she knows 2018 she knew it was May 10. She initially thought that I was an acquaintance of hers. She states she has had one prior psychiatric contact and number of years ago in [place] when she was admitted for 2-3 days for possible suicidality. She was discharged on no medications has had no mental health follow-up since then. She denies suicidality homicidality voices or visions. He is somewhat vigilant with me and with the staff however she does show cooperation. She is aware of her injury and the process that she is undergoing now. She denies alcohol use but she states she smokes marijuana nightly that she has a card for this for chronic pain. She says she has been suffering from chronic pain various back injuries for a number of years. In any event to the proximal stomach feel patient may be the covering for mild delirium perhaps there is a mild psychotic flavor to this that might be related to her use of marijuana. In any event I do not see this arising to the intensity that would recommend an antipsychotic. I feel encouragement to cooperate and reassurance by staff would be appropriate. Is okay by psychiatry for her to be discharged when she medically cleared and stable thanks for consult will follow up on a as needed basis Review of Systems Please see the treatment team assessment PMFSH - History History Provided By: Patient - Medical History Medical History: Medical History (Last Reviewed 05/09/18 @ 07:19 by Isreal Hooks) HTN (hypertension) High cholesterol - Surgical History Surgical History: Surgical History (Last Reviewed 05/09/18 @ 07:19 by Isreal Hooks) Hx of CABG - Tobacco History Second Hand Smoke Exposure: No Tobacco Use In Past 30 Days: Yes Smoking Status: Former smoker Tobacco Type: Cigarettes - Alcohol History How Often Do You Have a Drink Containing Alcohol: Monthly or less - Substance Use History Substance History: Active Abuse - Substance Use Type Marijuana Status: Active Route Used: By Mouth Frequency: DAILY Reason for Use: Calm Down - Travel History Recent Travel in the [place] Within the Last 8 Weeks: No Recent Travel Out of the Country Within the Last 8 Weeks: No - Immunization History Tetanus Immunization: Unsure Hx Influenza Vaccine This Season: No Medications and Allergies Active Medications: Active Medications Acetaminophen (Tylenol) 650 mg PO Q4H PRN PRN Reason: fever or headache Al Hydroxide/Mg Hydroxide (Milk Of Magnesia Liq) 30 ml PO Q12H PRN PRN Reason: Mild Constipation Aspirin (Aspirin Chew) 81 mg PO BID [facility] Last Admin: 05/10/18 08:16 Dose: 81 mg Bisacodyl (Dulcolax Supp) 10 mg RECTAL DAILY PRN PRN Reason: SEVERE CONSITIPATION Diphenhydramine HCl (Benadryl) 25 mg PO Q6H PRN PRN Reason: ITCHING Sodium Chloride (Ns Inj) 1,000 mls @ 100 mls/hr IV.CONT .Q10H [facility] Last Admin: 05/10/18 08:12 Dose: Not Given Sodium Chloride (Ns Inj) 500 mls @ 30 mls/hr IV.SIG .Q10H [facility] Last Admin: 05/10/18 08:12 Dose: Not Given Potassium Chloride/Dextrose/Sod Cl (D5w/1/2ns + Kcl 20 Meq Inj) 1,000 mls @ 100 mls/hr IV.CONT .Q10H [facility] Last Admin: 05/10/18 08:17 Dose: 100 mls/hr Lactulose (Lactulose Liq) 30 ml PO DAILY PRN PRN Reason: SEVERE CONSITIPATION Miscellaneous Information (Misc Nursing Information) 0 each OTHER UNSCH PRN PRN Reason: SEE LABEL COMMENTS Stop: 05/10/18 13:04 Morphine Sulfate (Morphine Inj) 2 mg IV.PUSH Q4H PRN PRN Reason: PAIN 6-10 Last Admin: 05/10/18 04:49 Dose: 2 mg Morphine Sulfate (Msir) 15 mg PO BID [facility] Last Admin: 05/10/18 08:16 Dose: 15 mg Ondansetron HCl (Zofran Inj) 4 mg IV.PUSH Q6H PRN PRN Reason: NAUSEA OR VOMITING Oxycodone/Acetaminophen (Percocet 10/325 Mg) 1 tab PO Q4H PRN PRN Reason: PAIN 3-5 Last Admin: 05/10/18 08:17 Dose: 1 tab Senna/Docusate Sodium (Stephanie-Colace) 1 tab PO BID [facility] Last Admin: 05/10/18 08:17 Dose: 1 tab Sennosides (Senokot) 17.2 mg PO Q12H PRN PRN Reason: Moderate Constipation Sodium Chloride (Ns Flush) 2 ml IV.FLUSH PRN PRN PRN Reason: FLUSH AFTER USING IV ACCESS Sodium Chloride (Ns Flush) 2 ml IV.FLUSH BID [facility] Last Admin: 05/10/18 08:16 Dose: 2 ml Sodium Chloride (Ns Flush) 2 ml IV.FLUSH PRN PRN PRN Reason: FLUSH AFTER USING IV ACCESS Allergies Allergy/AdvReac Type Severity Reaction Status Date / Time No Known Allergies Allergy Unverified 05/08/18 21:41 Home Medications Medication Instructions Recorded Confirmed Type aspirin 325 mg PO DAILY 05/08/18 05/08/18 History atorvastatin 80 mg PO DAILY 05/08/18 05/08/18 History morphine mg PO BID 05/08/18 History oxycodone-acetaminophen [Percocet] 1 tab PO Q4-6H PRN 05/08/18 05/08/18 History diltiazem HCl PO DAILY 05/09/18 History gabapentin PO TID 05/09/18 History Exam Vital signs: Vital Signs 05/09/18 13:03 05/09/18 13:15 05/09/18 13:30 Temperature 98.5 F Pulse Rate 104 H 105 H 107 H Respiratory Rate 20 22 20 Blood Pressure 140/67 155/82 H 156/81 H Pulse Oximetry 100 100 95 05/09/18 13:40 05/09/18 13:45 05/09/18 16:00 Temperature 98.6 F 99 F Pulse Rate 105 H 101 H Respiratory Rate 19 20 Blood Pressure 146/84 H 165/86 H Pulse Oximetry 99 96 93 L 05/09/18 16:33 05/09/18 20:00 05/09/18 20:01 Temperature 98.4 F Pulse Rate 99 H 113 H 111 H Respiratory Rate 18 Blood Pressure 133/88 168/94 H Pulse Oximetry 94 L 05/10/18 00:00 05/10/18 00:06 05/10/18 04:00 Temperature 98.3 F 98.5 F Pulse Rate 105 H 109 H 112 H Respiratory Rate 18 18 Blood Pressure 171/96 H 167/85 H Pulse Oximetry 94 L 96 05/10/18 08:00 05/10/18 08:47 05/10/18 09:00 Temperature 98.5 F Pulse Rate 108 H 78 Respiratory Rate 18 18 Blood Pressure 124/77 Pulse Oximetry 95 05/10/18 12:00 Temperature 98.8 F Pulse Rate 117 H Respiratory Rate 16 Blood Pressure 134/95 H Pulse Oximetry 97 Intake & Output 05/09/18 05/10/18 05/10/18 18:59 06:59 18:59 Intake Total 600 / 600 500 / 500 1000 / 1000 Output Total 700 / 700 2600 / 2600 Balance -100 / -100 -2100 / -2100 1000 / 1000 Weight 86.1 kg Intake: IV 200 / 200 1000 / 1000 D5W/1/2NS + KCL 20 mEq Inj 1, 0 / 0 1000 / 1000 000 ML @ 100 mls/hr IV.CONT . Q10H REI Rx#:[id number] Ancef Inj 2,000 MG In NS Inj 80 200 / 200 ML @ 200 mls/hr IV.SIG Q8H REI Rx#:[id number] Oral 300 / 300 Anesthesia Amount 600 / 600 Output: Urine 2600 / 2600 Estimated Blood Loss 50 / 50 Urine Amount (Catheter) 650 / 650 Indwelling Urethral Catheter 650 / 650 Other: Date of Last Bowel Movement 05/08/18 05/07/18 05/07/18 Narrative: Please see the treatment team assessment patient sitting quietly in chair beside bed she is in no acute distress no complaints of chest pain or abdominal pain complaints of some vague pain towards her left hip Mental Status Examination Appearance: Appropriate Consciousness: Alert Orientation: Person, Place, Date/Time, Situation Motor Activity: Other Speech: Unremarkable (Patient sitting in chair unable to assess) Language: Adequate Fund of Knowledge: Adequate Attention and Concentration: Adequate Memory: Unremarkable (Fair) Mood: Other (Euthymic to somewhat vigilant and mildly irritable) Affect: Other (Good range and intensity) Thought Process & Associations: Intact Thought Content: Appropriate, Other (Mildly paranoid) Hallucination Type: None Delusion Type: None Suicidal Ideation: No Suicidal Plan: No Suicidal Intention: No Homicidal Ideation: No Homicidal Plan: No Homicidal Intention: No Insight: Fair Judgment: Adequate (Fair) Assessment and Plan - Assessment (1) Delirium Code(s): R41.0 - Disorientation, unspecified Status: Acute - Plan Plan: Estimated LOS: [] days Patient showing perhaps resolving delirium. Perhaps some mild psychotic flavor secondary to her marijuana use. At this time would not recommend any specific medication. It is okay by psych for patient be discharged when medically cleared and stable Justification for Continued Inpatient Stay: To be determined by treatment team Discharge Planning: To be determined by treatment team Request Healthcare Surrogate/Guardian Advocate?: No
--- NOTE | 2018-05-10 17:00 | P.PN ---
Subjective Interval history: Patient is seen lying in bed. She continues to be somewhat paranoid and tells me that the nurses are refusing to give her Tylenol or any other pain medications. This is despite the fact I personally have witnessed nursing giving her pain medicine. Very unreliable historian due to this paranoia. Physical Exam Vital signs: Vital Signs 05/09/18 20:00 05/09/18 20:01 05/10/18 00:00 Temperature 98.4 F 98.3 F Pulse Rate 113 H 111 H 105 H Respiratory Rate 18 18 Blood Pressure 168/94 H 171/96 H Pulse Oximetry 94 L 94 L 05/10/18 00:06 05/10/18 04:00 05/10/18 08:00 Temperature 98.5 F 98.5 F Pulse Rate 109 H 112 H 108 H Respiratory Rate 18 18 Blood Pressure 167/85 H 124/77 Pulse Oximetry 96 95 05/10/18 08:47 05/10/18 09:00 05/10/18 12:00 Temperature 98.8 F Pulse Rate 78 117 H Respiratory Rate 18 16 Blood Pressure 134/95 H Pulse Oximetry 97 05/10/18 16:00 Temperature 98.3 F Pulse Rate 104 H Respiratory Rate 16 Blood Pressure 150/84 H Pulse Oximetry 96 Intake & Output 05/09/18 05/10/18 05/10/18 18:59 06:59 18:59 Intake Total 600 / 600 500 / 500 2099 Output Total 700 / 700 2600 / 2600 Balance -100 / -100 -2099 / -2100 2099 Weight 86.1 kg Intake: IV 200 / 200 2099 D5W/1/2NS + KCL 20 mEq Inj 1, 0 / 0 2000 / 2000 000 ML @ 100 mls/hr IV.CONT . Q10H REI Rx#:[id number] Ancef Inj 2,000 MG In NS Inj 80 200 / 200 100 / 100 ML @ 200 mls/hr IV.SIG Q8H REI Rx#:[id number] Oral 300 / 300 Anesthesia Amount 600 / 600 Output: Urine 2600 / 2600 Estimated Blood Loss 50 / 50 Urine Amount (Catheter) 650 / 650 Indwelling Urethral Catheter 650 / 650 Other: Date of Last Bowel Movement 05/08/18 05/07/18 05/07/18 Narrative: GENERAL: Well-nourished, well-developed adult female in no obvious distress. SKIN: Warm and dry. HEAD: Atraumatic. Normocephalic. CARDIOVASCULAR: Regular rate and rhythm. RESPIRATORY: No accessory muscle use. Clear to auscultation. Breath sounds equal bilaterally. GASTROINTESTINAL: Abdomen soft, non-tender, distended. Positive bowel sounds. MUSCULOSKELETAL: Dressing dry and intact. Tender to palpation with mild swelling around incision site. Appropriate range of motion expected post operatively. Freely able to move distal digits. No calf pain. Negative Lonny's sign. Good cap refill. 2+ pedal pulses. Neurovascular intact. all other extremities without clubbing, cyanosis, or edema. No obvious deformities. NEUROLOGICAL: Awake and alert. No obvious cranial nerve deficits. Motor grossly within normal limits. Normal speech. PSYCHIATRIC: Appropriate mood and affect; insight and judgment good. - Urinary Catheter Management Indwelling Urethral Catheter Cath placed during this visit: yes Reason for continuing: Other continuation reason Insertion date: 05/09/18 Insertion time: 08:05 Results - Labs CBC & Chem 7: 05/10/18 09:58 05/10/18 09:58 Laboratory Results - last 24 hr 05/09/18 05/10/18 05/10/18 19:45 09:58 09:58 WBC 8.2 RBC 4.80 Hgb 14.4 Hct 42.6 MCV 88.7 MCH 29.9 MCHC 33.7 RDW 14.0 Plt Count 168 MPV 7.5 Neut % (Auto) 75.7 H Lymph % (Auto) 17.0 [place] % (Auto) 6.5 Eos % (Auto) 0.3 Baso % (Auto) 0.5 Neut # (Auto) 6.2 Lymph # (Auto) 1.4 [place] # (Auto) 0.5 Eos # (Auto) 0.0 Baso # (Auto) 0.0 WBC Differential . Differential Comment Auto diff final Sodium 141 Potassium 3.9 Chloride 105 Carbon Dioxide 25.7 Anion Gap 10 BUN 10 Creatinine 0.70 Estimated GFR 87 L Random Glucose 103 Calcium 8.4 L D Total Bilirubin 0.5 AST 13 L ALT 23 Alkaline Phosphatase 63 Total Protein 7.9 Albumin 3.4 Urine Color Yellow Urine Clarity Hazy H Urine pH 6.0 Ur Specific [place] 1.014 Urine Protein Negative Urine Glucose (UA) Negative Urine Ketones Negative Urine Occult Blood Moderate H Urine Nitrate Negative Urine Bilirubin Negative Urine Urobilinogen 2.0 H Ur Leukocyte Esterase Moderate H Urine RBC 4 H Urine WBC 17 H Ur Squamous Epith Cells 1 Urine Mucus Few H Micro UA Comment Cath-culture ind Ur Microscopic Review Not Reportable Urine Culture Comments Cath-cult indicated Microbiology 05/09/18 19:45 Clean Catch Urine Urine Culture - Preliminary No growth in 24 hours - Procedures 05/09/18 percutaneous pinning left femoral neck fracture Assessment and Plan - Assessment (1) Fall Code(s): W19.XXXA - Unspecified fall, initial encounter Status: Acute (2) Hip fracture, left Code(s): S72.002A - Fracture of unspecified part of neck of left femur, initial encounter for closed fracture Status: Acute (3) Delirium Code(s): R41.0 - Disorientation, unspecified Status: Acute - Plan This is a 53-year-old female with a PMH of HTN, Chronic Pain and Hyperlipidemia who was brought to the ER by EMS secondary to complaints of left hip pain. Patient states she had a fall at home and was unable to ambulate after that. -Fall: s/p mechanical fall after episode of dizziness, no LOC or head trauma noted. CT Head w/ no acute findings -Left Hip Fx: X-ray negative, however pt w/ persistent pain complaints, CT Hip w/ nondisplaced acute subcapital femoral neck fracture, images reviewed. Ortho Consult for further eval/intervention. Analgesics/antiemetics as needed. -Delirium and paranoia: Psychiatry consult ordered; appreciate assistance -Hypertension and hyperlipidemia, chronic: Restart home medication DVT Prophylaxis: Anticoagulation post op per ortho Discussed with: Patient, nurse, Dr. Ch, Dr. Vee. Discharge planning: Likely home with home health; patient has limited resources. Appreciate case management assistance.
[2018-05-10] MEDS: Gabapentin 300 MG Capsule PO SCH (17:25)
[2018-05-11] MEDS ORDERED: dilTIAZem CD 120 MG Capsule PO SCH (09:00)
--- NOTE | 2018-05-11 09:02 | P.PNOP ---
Subjective Interval history: Postoperative day #2 cannulated screw fixation left femoral neck fracture. The patient states her pain is well controlled. She has no specific complaint. Physical Exam Vital signs: Vital Signs 05/10/18 09:00 05/10/18 12:00 05/10/18 16:00 Temperature 98.8 F 98.3 F Pulse Rate 78 117 H 104 H Respiratory Rate 16 16 Blood Pressure 134/95 H 150/84 H Pulse Oximetry 97 96 05/10/18 20:00 05/11/18 04:00 Temperature 98.8 F 98.6 F Pulse Rate 102 H 100 H Respiratory Rate 17 17 Blood Pressure 141/88 H 140/82 Pulse Oximetry 91 L 93 L Intake & Output 05/10/18 05/11/18 05/11/18 18:59 06:59 18:59 Intake Total 2099 Balance 2099 Weight 86.2 kg Intake: IV 2099 D5W/1/2NS + KCL 20 mEq Inj 1, 2000 / 2000 000 ML @ 100 mls/hr IV.CONT . Q10H REI Rx#:[id number] Ancef Inj 2,000 MG In NS Inj 80 100 / 100 ML @ 200 mls/hr IV.SIG Q8H REI Rx#:[id number] Other: Date of Last Bowel Movement 05/07/18 05/07/18 Narrative: The left hip dressing is dry and intact. There is minimal swelling. There is no calf discomfort and a negative Homans sign. Neurologically no focal deficit. - Constitutional no acute distress - Urinary Catheter Management Indwelling Urethral Catheter Cath placed during this visit: yes Reason for continuing: Acute urinary retention Insertion date: 05/09/18 Insertion time: 08:05 Results - Labs CBC & Chem 7: 05/10/18 09:58 05/10/18 09:58 Laboratory Results - last 24 hr 05/10/18 05/10/18 09:58 09:58 WBC 8.2 RBC 4.80 Hgb 14.4 Hct 42.6 MCV 88.7 MCH 29.9 MCHC 33.7 RDW 14.0 Plt Count 168 MPV 7.5 Neut % (Auto) 75.7 H Lymph % (Auto) 17.0 [place] % (Auto) 6.5 Eos % (Auto) 0.3 Baso % (Auto) 0.5 Neut # (Auto) 6.2 Lymph # (Auto) 1.4 [place] # (Auto) 0.5 Eos # (Auto) 0.0 Baso # (Auto) 0.0 WBC Differential . Differential Comment Auto diff final Sodium 141 Potassium 3.9 Chloride 105 Carbon Dioxide 25.7 Anion Gap 10 BUN 10 Creatinine 0.70 Estimated GFR 87 L Random Glucose 103 Calcium 8.4 L D Total Bilirubin 0.5 AST 13 L ALT 23 Alkaline Phosphatase 63 Total Protein 7.9 Albumin 3.4 Microbiology 05/09/18 19:45 Clean Catch Urine Urine Culture - Preliminary No growth in 24 hours - Procedures 05/09/18 percutaneous pinning left femoral neck fracture Assessment and Plan - Ortho Post Op Day # 2 - Problem List (1) Fracture of femoral neck, left Code(s): S72.002A - Fracture of unspecified part of neck of left femur, initial encounter for closed fracture Status: Acute - Assessment and Plan POD #2 Percutaneous pinning left femoral neck fracture Ortho status stable for discharge Progress rehab, toe-touch weightbearing left lower extremity Aspirin for DVT prophylaxis No change dressing Case management to arrange rehab versus home health care
[2018-05-11] MEDS: Gabapentin 300 MG Capsule PO SCH ×2 (09:14→14:43)
[2018-05-11] MEDS: Senna/Docusate Sodium 8.6/50 MG Tablet PO SCH ×2 (09:20→23:05)
[2018-05-11] MEDS: Morphine Sulfate 15 MG IR Tablet PO SCH (13:18)
[2018-05-11] MEDS ORDERED: Morphine Sulfate 30 MG IR Tablet PO PRN (15:19)
[2018-05-11] MEDS: LORazepam 0.5 MG Tablet PO PRN (16:41)
--- NOTE | 2018-05-11 17:41 | P.PN ---
Subjective Interval history: Patient sitting up in room. She is pleasant however she seems to be experiencing increased paranoid behavior; now having hallucinations. She tells me "at night the clock becomes two people who have sex". She also states that her family is out in the [place] and that they are mad at her for taking too many narcotics (family is not in [place]). Spoke to her via phone, he tells me that she does not have a history of paranoia or dementia. She does have a history of chronic pain and narcotic overuse. No history of EtOH use or abuse. 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 He is concerned about her hallucinations and says that she has never had anything like this before. Physical Exam Vital signs: Vital Signs 05/10/18 20:00 05/11/18 04:00 05/11/18 08:00 Temperature 98.8 F 98.6 F 98.6 F Pulse Rate 102 H 100 H 103 H Respiratory Rate 17 17 17 Blood Pressure 141/88 H 140/82 119/76 Pulse Oximetry 91 L 93 L 95 05/11/18 12:00 05/11/18 16:00 Temperature 98.8 F 98.5 F Pulse Rate 109 H 113 H Respiratory Rate 16 16 Blood Pressure 121/77 109/71 Pulse Oximetry 96 98 Intake & Output 05/10/18 05/11/18 05/11/18 18:59 06:59 18:59 Intake Total 2099 Balance 2099 Weight 86.2 kg Intake: IV 2099 D5W/1/2NS + KCL 20 mEq Inj 1, 2000 / 2000 000 ML @ 100 mls/hr IV.CONT . Q10H REI Rx#:[id number] Ancef Inj 2,000 MG In NS Inj 80 100 / 100 ML @ 200 mls/hr IV.SIG Q8H REI Rx#:[id number] Other: Date of Last Bowel Movement 05/07/18 05/07/18 Narrative: GENERAL: Well-nourished, well-developed adult female in no obvious distress. SKIN: Warm and dry. HEAD: Atraumatic. Normocephalic. CARDIOVASCULAR: Regular rate and rhythm. RESPIRATORY: No accessory muscle use. Clear to auscultation. Breath sounds equal bilaterally. GASTROINTESTINAL: Abdomen soft, non-tender, non-distended. Positive bowel sounds. MUSCULOSKELETAL: Dressing dry and intact. Tender to palpation with mild swelling around incision site. Appropriate range of motion expected post operatively. Freely able to move distal digits. No calf pain. Negative Lonny's sign. Good cap refill. 2+ pedal pulses. Neurovascular intact. all other extremities without clubbing, cyanosis, or edema. No obvious deformities. NEUROLOGICAL: Awake and alert. No obvious cranial nerve deficits. Motor grossly within normal limits. Normal speech. PSYCHIATRIC: Paranoid with hallucinations - Urinary Catheter Management Indwelling Urethral Catheter Cath placed during this visit: yes, but has since been removed by the nurse Reason for continuing: Decision to DC catheter Insertion date: 05/09/18 Insertion time: 08:05 Removal date: 05/11/18 Removal time: 14:32 Results - Labs CBC & Chem 7: 05/10/18 09:58 05/10/18 09:58 Microbiology 05/09/18 19:45 Clean Catch Urine Urine Culture - Final No growth in 48 hours - Procedures 05/09/18 percutaneous pinning left femoral neck fracture Assessment and Plan - Assessment (1) Fall Code(s): W19.XXXA - Unspecified fall, initial encounter Status: Acute (2) Hip fracture, left Code(s): S72.002A - Fracture of unspecified part of neck of left femur, initial encounter for closed fracture Status: Acute (3) Delirium Code(s): R41.0 - Disorientation, unspecified Status: Acute - Plan This is a 53-year-old female with a PMH of HTN, Chronic Pain and Hyperlipidemia who was brought to the ER by EMS secondary to complaints of left hip pain. Patient states she had a fall at home and was unable to ambulate after that. Fall: s/p mechanical fall after episode of dizziness, no LOC or head trauma noted. CT Head at admit w/ no acute findings. -Additional imaging ordered 05/10 due to increasingly odd behavior. Left Hip Fx: X-ray negative, however pt w/ persistent pain complaints, CT Hip w / nondisplaced acute subcapital femoral neck fracture. -Ortho Consult for further eval/intervention. Analgesics/antiemetics as needed. -Postoperative day #2 cannulated screw fixation left femoral neck fracture. Delirium and paranoia: -Psychiatry consult ordered; appreciate assistance. Psychiatry does not believe intervention is needed at this time -Patient having hallucinations possibly related to narcotic withdrawal -add Ativan -UA negative; afebrile. Labs grossly normal. Hypertension and hyperlipidemia, chronic -Restart home medication -corrected home medication list brought in by ; updated medications per new list. DVT Prophylaxis: ASA per ortho Discussed with: Patient, nurse, patient has been, Dr. Vee. Discharge planning: Will likely need rehab. Appreciate case management assistance.
[2018-05-11] MEDS: Gabapentin 400 MG Capsule PO SCH (19:13)
[2018-05-12] MEDS: Ascorbic Acid 500 MG Tablet PO SCH (09:27)
[2018-05-12] MEDS: Gabapentin 400 MG Capsule PO SCH ×3 (09:27→18:03)
[2018-05-12] MEDS: Senna/Docusate Sodium 8.6/50 MG Tablet PO SCH ×2 (09:28→20:02)
--- NOTE | 2018-05-12 09:42 | MR ---
EXAM DATE: 05/12/2018 9:36 AM EDT AGE/SEX: 53 years / Female INDICATIONS: Confusion. CLINICAL DATA: This is the patient's initial encounter. Patient reports that signs and symptoms have been present for 2 days and indicates a pain score of 0/10. MEDICAL/SURGICAL HISTORY: Hypertension. CABG. Left hip. COMPARISON: [facility] – [place], CT HEAD W/O CONTRAST, 05/09/2018. . TECHNIQUE: Multiplanar, multisequence examination of the brain was performed without and with 9 ml Ga davist (gadobutrol) contrast as a single exam dose. FINDINGS: Cerebrum: The ventricles are normal for age. No evidence of midline shift, mass lesion, hemorrhage or acute infarction. No extraaxial fluid collections are seen. The pituitary gland and suprasellar cistern are normal in configuration. White Matter: A few scattered foci of bright T2 signal abnormalities are seen in the white matter. Posterior Fossa: The cerebellum and brainstem are intact. The 4th ventricle is midline. The cerebel lopontine angle is unremarkable. The cerebellar tonsils are normal in position. Diffusion Imaging: No focal areas of restricted diffusion are seen. No evidence of acute infarction . Extracranial: The visualized portions of the orbits and paranasal sinuses are unremarkable. Post Contrast: No abnormal areas of parenchymal or dural enhancement. No evidence of blood-brain ba rrier breakdown. CONCLUSION: 1. Minimal nonspecific white matter changes. 2. No acute intracranial abnormality. Electronically signed by: Jaime Sanchez MD 05/12/2018 9:40 AM EDT
--- NOTE | 2018-05-12 11:01 | P.PNOP ---
Subjective Interval history: Patient is awake and alert and sitting upright in chair. She is very pleasant and seems much better oriented. She feels ready for discharge to rehab, she is requesting [facility]. Physical Exam Vital signs: Vital Signs 05/11/18 12:00 05/11/18 16:00 05/11/18 19:42 Temperature 98.8 F 98.5 F 98.3 F Pulse Rate 109 H 113 H 106 H Respiratory Rate 16 16 18 Blood Pressure 121/77 109/71 92/68 L Pulse Oximetry 96 98 95 05/11/18 23:25 05/12/18 03:46 05/12/18 08:00 Temperature 98.2 F 97.8 F 98.0 F Pulse Rate 91 H 90 102 H Respiratory Rate 18 17 16 Blood Pressure 117/73 122/67 99/70 L Pulse Oximetry 96 96 97 Intake & Output 05/11/18 05/12/18 05/12/18 18:59 06:59 18:59 Intake Total 240 / 240 240 / 240 Output Total 600 / 600 Balance -360 / -360 240 / 240 Weight 86.2 kg Intake: Oral 240 / 240 240 / 240 Output: Urine 600 / 600 Other: # Voids 1 # Bowel Movements 1 0 Narrative: GENERAL: Well-nourished, well-developed adult female in no obvious distress. SKIN: Warm and dry. HEAD: Atraumatic. Normocephalic. CARDIOVASCULAR: Regular rate and rhythm. RESPIRATORY: No accessory muscle use. Clear to auscultation. Breath sounds equal bilaterally. GASTROINTESTINAL: Abdomen soft, non-tender, non-distended. Positive bowel sounds. MUSCULOSKELETAL: Dressing dry and intact. Tender to palpation with mild swelling around incision site. Appropriate range of motion expected post operatively. Freely able to move distal digits. No calf pain. Negative Lonny's sign. Good cap refill. 2+ pedal pulses. Neurovascular intact. all other extremities without clubbing, cyanosis, or edema. No obvious deformities. NEUROLOGICAL: Awake and alert. No obvious cranial nerve deficits. Motor grossly within normal limits. Normal speech. PSYCHIATRIC: Paranoid with hallucinations - Urinary Catheter Management Indwelling Urethral Catheter Cath placed during this visit: yes, but has since been removed by the nurse Reason for continuing: Decision to DC catheter Insertion date: 05/09/18 Insertion time: 08:05 Removal date: 05/11/18 Removal time: 14:32 Results - Labs CBC & Chem 7: 05/10/18 09:58 05/10/18 09:58 Microbiology 05/09/18 19:45 Clean Catch Urine Urine Culture - Final No growth in 48 hours - Imaging Impressions Head MRI 05/12/18 00:00 CONCLUSION: 1. Minimal nonspecific white matter changes. 2. No acute intracranial abnormality. Hip X-Ray 05/08/18 22:05 CONCLUSION: No fracture is definitely seen. Head CT 05/09/18 00:00 CONCLUSION: 1. Negative CT Head non contrast. . Hip CT 05/09/18 00:00 CONCLUSION: 1. Acute nondisplaced subcapital femoral neck fracture. Hip X-Ray 05/09/18 00:00 CONCLUSION: Postoperative changes. Head MRI 05/12/18 00:00 CONCLUSION: 1. Minimal nonspecific white matter changes. 2. No acute intracranial abnormality. 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
[2018-05-12] MEDS ORDERED: Gadobutrol PF 10 MMOL/10 ML Vial (for RAD) IV.SIG ONE (13:55)
--- NOTE | 2018-05-12 14:15 | P.PNIM ---
Subjective Interval history: Patient is AAO 3. She is able to answer questions appropriately. Patient very upset because she was accused of elucidating the past couple days. Patient stated that she was not hallucinating. Patient stated that her relatives were here yesterday. Patient also asked if any relatives asked the nurse to not give her any narcotics. She seemed to be fixated on this. She asked me to look into all the documents to see if any of her relatives spoke to the nurse. Patient also complaining of a left lymph node located in the higinio- auricle area. She stated that occur 1 week ago. Denies any upper respiratory symptoms or earaches. Physical Exam Vital signs: Vital Signs 05/11/18 16:00 05/11/18 19:42 05/11/18 23:25 Temperature 98.5 F 98.3 F 98.2 F Pulse Rate 113 H 106 H 91 H Respiratory Rate 16 18 18 Blood Pressure 109/71 92/68 L 117/73 Pulse Oximetry 98 95 96 05/12/18 03:46 05/12/18 08:00 05/12/18 09:00 Temperature 97.8 F 98.0 F Pulse Rate 90 102 H 95 H Respiratory Rate 17 16 Blood Pressure 122/67 99/70 L Pulse Oximetry 96 97 05/12/18 12:00 Temperature 98.2 F Pulse Rate 119 H Respiratory Rate 18 Blood Pressure 110/76 Pulse Oximetry 97 Intake & Output 05/11/18 05/12/18 05/12/18 18:59 06:59 18:59 Intake Total 240 / 240 240 / 240 240 / 240 Output Total 600 / 600 Balance -360 / -360 240 / 240 240 / 240 Weight 86.2 kg Intake: Oral 240 / 240 240 / 240 240 / 240 Output: Urine 600 / 600 Other: # Voids 1 2 Date of Last Bowel Movement 05/11/18 # Bowel Movements 1 0 - Constitutional no acute distress - Routine HEENT Exam Head: Present: normocephalic, atraumatic Eye: Present: EOMI, PERRL ENT: Present: mucous membranes moist, oropharynx clear, nares patent, external ear normal, TM's clear bilaterally - Routine Neck Exam Present: supple, full ROM, trachea midline Comments: Patient has a 0.8 cm palpable lymph node that is rubbery with palpation and mobile. - Routine Respiratory Exam Present: CTA bilaterally - Routine Cardiovascular Exam Present: RRR, S1, S2 Comments: No tenderness to palpation. Negative for any peritoneal signs. - Routine Abdominal Exam Present: soft, normoactive bowel sounds - Urinary Catheter Management Indwelling Urethral Catheter Cath placed during this visit: yes, but has since been removed by the nurse Reason for continuing: Decision to DC catheter Insertion date: 05/09/18 Insertion time: 08:05 Removal date: 05/11/18 Removal time: 14:32 Results - Labs CBC & Chem 7: 05/10/18 09:58 05/10/18 09:58 Microbiology 05/09/18 19:45 Clean Catch Urine Urine Culture - Final No growth in 48 hours - Imaging Impressions Head MRI 05/12/18 00:00 CONCLUSION: 1. Minimal nonspecific white matter changes. 2. No acute intracranial abnormality. - Procedures 05/09/18 percutaneous pinning left femoral neck fracture Assessment and Plan - Assessment (1) Fall Code(s): W19.XXXA - Unspecified fall, initial encounter Status: Acute (2) Hip fracture, left Code(s): S72.002A - Fracture of unspecified part of neck of left femur, initial encounter for closed fracture Status: Acute (3) Delirium Code(s): R41.0 - Disorientation, unspecified Status: Acute - Plan This is a 53-year-old female with a PMH of HTN, Chronic Pain and Hyperlipidemia who was brought to the ER by EMS secondary to complaints of left hip pain. Patient states she had a fall at home and was unable to ambulate after that. Fall: s/p mechanical fall after episode of dizziness, no LOC or head trauma noted. CT Head at admit w/ no acute findings. -Additional imaging ordered 05/10 due to increasingly odd behavior. Left Hip Fx: X-ray negative, however pt w/ persistent pain complaints, CT Hip w / nondisplaced acute subcapital femoral neck fracture. -Ortho Consult for further eval/intervention. Analgesics/antiemetics as needed. -Postoperative day #3 cannulated screw fixation left femoral neck fracture. -Patient is clear for discharge from or throat. Pending placement. Delirium and paranoia: -Psychiatry consult ordered; appreciate assistance. Psychiatry does not believe intervention is needed at this time. They think that this is most likely due to marijuana use. -During my interview with patient she does not seem to be hallucinating. She is back to her baseline. May be secondary to anesthesia narcotic use. Hypertension and hyperlipidemia, chronic -Continue with home medication. Periauricular lymph node -No signs of upper respiratory symptoms. On exam HEENT is normal. Lymph nodes is rubbery and mobile. This seems more like an inflammatory response. Patient told she will need to follow with her primary care physician within 1 week for follow-up to make sure that there is improvement in the lymph no resolution. She was told if it worsens she may need further imaging. DVT Prophylaxis: ASA per ortho Discharge planning: Pending information on insurance to get approval for SNF. has not brought the information and yet.
[2018-05-12] MEDS: LORazepam 0.5 MG Tablet PO PRN (19:54)
[2018-05-12] MEDS ORDERED: Melatonin 5 MG Tablet PO PRN (22:55)
[2018-05-13] MEDS: oxyCODONE/Acetaminophen 10/325 Tablet PO PRN ×2 (04:30→09:11)
[2018-05-13] MEDS: Gabapentin 400 MG Capsule PO SCH ×2 (09:10→14:13)
[2018-05-13] MEDS: Senna/Docusate Sodium 8.6/50 MG Tablet PO SCH (09:10)
[2018-05-13] MEDS: Ascorbic Acid 500 MG Tablet PO SCH (09:11)
--- NOTE | 2018-05-13 12:20 | P.PNIM ---
Subjective Interval history: Follow-up for placement Patient is asking to be on 10 mg of Ambien. She said that when she is in the hospital or in the rehab center she was given Ambien 10 mg. She said that she was not able to sleep last night and that she was given melatonin. Patient stated that she wanted to show me proof that she had received Ambien in the past. She went on her computer for [employer] prescription and she showed me that she did have Ambien multiple times in the past and last time was last year when she a dose of 10 mg. Patient is AAO 3. She is able to answer questions appropriately. She is not confused. Patient also apologized for her yesterday. She stated to me "look what I have to deal with at home." Patient stated that he gets like that and he thinks he is always right and is very stubborn. Otherwise there were no acute events. Discussed case with patient's nurse. Physical Exam Vital signs: Vital Signs 05/12/18 16:00 05/12/18 19:57 05/12/18 20:30 Temperature 98.1 F 98.4 F Pulse Rate 101 H 105 H 110 H Respiratory Rate 16 18 Blood Pressure 122/78 94/66 L Pulse Oximetry 97 95 05/12/18 23:48 05/13/18 00:11 05/13/18 03:05 Temperature 97.5 F L 98.0 F Pulse Rate 103 H 93 H 87 Respiratory Rate 18 18 Blood Pressure 98/62 L 92/62 L Pulse Oximetry 96 96 05/13/18 04:15 05/13/18 07:23 05/13/18 08:00 Temperature 98.6 F Pulse Rate 89 98 H Respiratory Rate 16 18 Blood Pressure 113/60 Pulse Oximetry 96 05/13/18 09:00 05/13/18 10:15 Temperature Pulse Rate 96 H Respiratory Rate 16 Blood Pressure Pulse Oximetry Intake & Output 05/12/18 05/13/18 05/13/18 18:59 06:59 18:59 Intake Total 600 / 600 360 / 360 240 / 240 Output Total Balance 599 / 599 360 / 360 240 / 240 Weight 86.2 kg Intake: Oral 600 / 600 360 / 360 240 / 240 Output: Urine Other: # Voids 2 1 Date of Last Bowel Movement 05/11/18 05/11/1805/11/18 # Bowel Movements 0 - Constitutional no acute distress - Routine HEENT Exam Comments: Periauricular length enlarged lymph node that is rubbery and mobile. Nontender to palpation. - Routine Respiratory Exam Present: CTA bilaterally - Routine Cardiovascular Exam Present: RRR, S1, S2 - Routine Abdominal Exam Present: soft, normoactive bowel sounds Comments: Nontender to palpation. - Routine Extremities Exam Comments: Negative for any edema. - Routine Neurological Exam Present: alert, oriented X3 Sensation and strength grossly intact. - Routine Psychiatric Exam Present: normal affect, normal thought process - Urinary Catheter Management Indwelling Urethral Catheter Cath placed during this visit: yes, but has since been removed by the nurse Reason for continuing: Decision to DC catheter Insertion date: 05/09/18 Insertion time: 08:05 Removal date: 05/11/18 Removal time: 14:32 Results - Labs CBC & Chem 7: 05/10/18 09:58 05/10/18 09:58 - Procedures 05/09/18 percutaneous pinning left femoral neck fracture Assessment and Plan - Assessment (1) Fall Code(s): W19.XXXA - Unspecified fall, initial encounter Status: Acute (2) Hip fracture, left Code(s): S72.002A - Fracture of unspecified part of neck of left femur, initial encounter for closed fracture Status: Acute (3) Delirium Code(s): R41.0 - Disorientation, unspecified Status: Acute - Plan This is a 53-year-old female with a PMH of HTN, Chronic Pain and Hyperlipidemia who was brought to the ER by EMS secondary to complaints of left hip pain. Patient states she had a fall at home and was unable to ambulate after that. Fall: - s/p mechanical fall after episode of dizziness, no LOC or head trauma noted. CT Head at admit w/ no acute findings. -POD #3 Percutaneous pinning left femoral neck fracture -Patient cleared from orthopedic surgeon. Recommend toe-touch weightbearing of lower extremity. Aspirin for DVT prophylaxis. No change in dressing. 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 Delirium and paranoia: -Psychiatry consult ordered; appreciate assistance. Psychiatry does not believe intervention is needed at this time. They think that this is most likely due to marijuana use. -This has resolved for at least 2 days. Patient is not confused this is most likely secondary to medication and anesthesia. Labs are within normal limits CT scan negative are. MRI was also done which was not impressive. Hypertension and hyperlipidemia, chronic -Continue with home medication. Periauricular lymph node -No signs of upper respiratory symptoms. On exam HEENT is normal. Lymph nodes is rubbery and mobile. This seems more like an inflammatory response. Patient told she will need to follow with her primary care physician within 1 week for follow-up to make sure that there is improvement in the lymph no resolution. She was told if it worsens she may need further imaging. DVT Prophylaxis: ASA per ortho Discharge planning: Pending information on insurance to get approval for SNF. has not brought the information and yet.
[2018-05-13 15:53] VITALS: BP 95/70; PULSE 102; RESP 18; TEMP 97.8; O2SAT 97
--- NOTE | 2018-06-08 22:55 | P.DS ---
Date of admission: 05/09/18 01:17 Primary care physician: 05/13/2018 Attending physician on discharge: Chichi Lewis Brief History from admission: This is a 53-year-old female with a PMH of HTN, Chronic Pain and Hyperlipidemia who was brought to the ER by EMS secondary to complaints of left hip pain. States she had sudden episode of dizziness w/ fall while at home earlier this morning, notes she's been unable to ambulate due to pain. Notes pain is constant, severe, 10/10, non-radiating. No other injuries reported. Patient update on day of discharge: see progress note on the day of discharge. DS: Diagnosis - Discharge Diagnosis (1) Fall Status: Acute (2) Hip fracture, left Status: Acute (3) Delirium Status: Acute DS: Medications - Discharge Medications Prescriptions: morphine 30 mg PO BID #20 tab oxycodone-acetaminophen [Percocet] 1 tab PO Q6HR PRN #20 tab PRN Reason: Pain zolpidem 10 mg PO HS PRN #5 tab PRN Reason: Insomnia DS: Summary Hospital Course: This is a 53-year-old female with a PMH of HTN, Chronic Pain and Hyperlipidemia who was brought to the ER by EMS secondary to complaints of left hip pain. Patient states she had a fall at home and was unable to ambulate after that. Fall: - s/p mechanical fall after episode of dizziness, no LOC or head trauma noted. CT Head at admit w/ no acute findings. -during hospitalization patient had percutaneous pinning left femoral neck fracture -Patient cleared from orthopedic surgeon. Recommend toe-touch weightbearing of lower extremity. Aspirin for DVT prophylaxis. No change in dressing. 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 Delirium and paranoia: -Psychiatry consult ordered; appreciate assistance. Psychiatry does not believe intervention is needed at this time. They think that this is most likely due to marijuana use. -This has resolved during her hospital course. Patient is not confused this is most likely secondary to medication and anesthesia. Labs are within normal limits CT scan negative are. MRI was also done which was not impressive. Hypertension and hyperlipidemia, chronic -Continue with home medication. Periauricular lymph node -No signs of upper respiratory symptoms. On exam HEENT is normal. Lymph nodes is rubbery and mobile. This seems more like an inflammatory response. Patient told she will need to follow with her primary care physician within 1 week for follow-up to make sure that there is improvement in the lymph no resolution. She was told if it worsens she may need further imaging. - Time Spent with Patient Total time spent providing and/or coordinating discharge services: >30 minutes Greater than 30 minutes - Quality: AMI Clinical Trial Participant: No - Quality: VTE Deep Vein Thrombosis/Pulmonary Embolism Present on Admission: No Exam - Constitutional no acute distress - Routine HEENT Exam Head: Present: normocephalic ENT: Present: mucous membranes moist - Routine Respiratory Exam Present: CTA bilaterally - Routine Cardiovascular Exam Present: RRR, S1, S2 - Routine Abdominal Exam Present: soft, normoactive bowel sounds - Routine Extremities Exam Comments: neg LE edema - Routine Neurological Exam Present: alert, oriented X3 motor and sensation grossly intact. Results Procedures completed during hospitalization: 05/09/18 percutaneous pinning left femoral neck fracture - Impressions ITS Impressions Head CT 05/09/18 00:00 CONCLUSION: 1. Negative CT Head non contrast. . Hip CT 05/09/18 00:00 CONCLUSION: 1. Acute nondisplaced subcapital femoral neck fracture. Hip X-Ray 05/09/18 00:00 CONCLUSION: Postoperative changes. Head MRI 05/12/18 00:00 CONCLUSION: 1. Minimal nonspecific white matter changes. 2. No acute intracranial abnormality. Discharge Plan - Discharge Disposition Patient Disposition: Discharge to SNF - Discharge Condition Condition: Stable - Discharge Order Discharge Orders: Discharge Order (Routine); Ordered 05/13/18 Ordered By: Chichi Lewis Orthopedic Clear for Discharge (Routine); Ordered 05/12/18 Ordered By: Eleanor Mcmullen (Ashley)ppcristel - Discharge Details Anticipated Discharge Date: 05/13/18 Discharge Comment: can discharge when bed is available at SNF - Physicians Team Primary Care Provider: UNKNOWN, Attending Provider: Chichi Lewis Other Providers: Dwight Santillan MD ; Humberto Ch MD ; [facility], [place]
== END 2018-05-13 18:02 ==
LOC: NEPD 20:19 → NEDA 05-09 01:17 → N06 05-09 04:05
PROVIDERS: ADMIT Family Medicine; ATTEND Family Medicine